=== PATIENT | male | born 1980 | race Asian ===

== ENCOUNTER 2019-12-26 10:11 | Emergency (ER) | payer OTHER ==
--- NOTE | 2019-12-26 10:52 | TELE ---
HPI Do you have fever,cough or shortness of breath?: Yes - General Reason For Visit: COVID TEST Time Seen by Provider: 12/26/19 10:50 History Source: Patient Exam Limitations: Clinical Condition - History of Present Illness Timing/Duration: unsure Associated Symptoms: reports: denies symptoms 12/26/19 10:50 Patient with no significant past medical history presented to [facility] urgent care for COVID testing for travel. Patient traveling to [place] in 2 days. Denies any symptoms. Denies fever, chills, cough, shortness of breath. Denies recent travel or sick contact. Review of Systems - Review of Systems Able to Perform ROS?: Yes Limited Georgian proficient: No Constitutional: No: Chills, Fever, Malaise HEENTM: No: Symptoms Reported, See HPI, Eye Pain, Blurred Vision, Tearing, Recent change in vision, Double Vision, Cataracts, Ear Pain, Ocular Prothesis, Ear Discharge, Nose Pain, Nose Congestion, Tinnitus, Nose Bleeding, Hearing Loss, Throat Pain, Throat Swelling, Mouth Pain, Dental Problems, Difficulty Swallowing, Mouth Swelling, Other Respiratory: No: Symptoms reported, See HPI, Cough, Orthopnea, Shortness of Breath, SOB with Exertion, SOB at Rest, Stridor, Wheezing, Productive cough, Hemoptysis, Other Cardiac (ROS): No: Symptoms Reported, See HPI, Chest Pain, Edema, Irregular Heart Rate, Lightheadedness, Palpitations, Syncope, Chest Tightness, Other ABD/GI: No: Symptoms Reported, Nausea, Vomiting Musculoskeletal: No: Symptoms Reported Integumentary: No: Symptoms Reported, Rash Neurological: No: Symptoms reported, Headache, Dizziness All Other Systems: Reviewed and Negative *Physical Exam - Physical Exam General Appearance: Yes: Nourished, Appropriately Dressed. No: Apparent Distress HEENT: positive: Normal ENT Inspection Respiratory/Chest: negative: Respiratory Distress, Accessory Muscle Use Musculoskeletal: positive: Normal Inspection Extremity: positive: Normal Capillary Refill, Normal Inspection, Normal Range of Motion Integumentary: positive: Normal Color Neurologic: positive: Fully Oriented, Alert, Normal Mood/Affect, Normal Response, Motor Strength 5/5 - Medical Decision Making 12/26/19 10:50 Patient with no significant past medical history presented [facility] for COVID testing for travel. Patient traveling to [place] in 2 days. Denies any symptoms. Denies fever, chills, cough, shortness of breath. Denies recent travel or sick contact. Patient asymptomatic at this time. COVID test ordered as per patient's request. Patient to go to [place] [facility] today for testing. Patient stable for discharge Discharge Diagnosis at time of Disposition: Counseled about COVID-19 virus infection - Referrals Follow-up Referral(s): Dionisio Juan MD [Primary Care Provider] - - Patient Instructions - Discharge Disposition: HOME Condition at time of Disposition: Stable
== END 2019-12-26 10:52 | disposition home or self-care (01) ==
LOC: JVIRT 10:11
DX: Z11.59 Encounter for screening for other viral diseases (principal)
CPT/HCPCS: Q3014-GT; U0003